=== PATIENT | male | born 1980 | race Caucasian/White ===

== ENCOUNTER 2020-06-21 10:53 | Outpatient (REF) | payer OTHER, SELFPAY ==
[2020-06-21 15:13] LABS: Alanine Aminotransferase 46 U/L (0-40); Albumin Level 4.6 g/dL (3.5-5.0); Alkaline Phosphatase 84 U/L (39-117); Anion Gap 11 (12-20); Aspartate Amino Transferase 34 U/L (5-37); Bilirubin Total 0.6 mg/dL (0.0-1.0); Blood Urea Nitrogen 18 mg/dL (9-16); Calcium 9.3 mg/dL (8.4-10.2); Carbon Dioxide 30 mmol/L (22-29); Chloride 103 mmol/L (96-108); Cholesterol 186 mg/dL; Estimated Glomerular Filt Rate > 60; Glucose Fasting 147 mg/dL (60-99); HDL Cholesterol 41 mg/dL; LDL Cholesterol Calculated 117 mg/dl; Sodium 140 mmol/L (135-145); Total Protein 7.4 g/dL (6.5-8.0); Triglycerides 144 mg/dL
[2020-06-21 15:26] LABS: Estimated Average Glucose 166 mg/dL; Hemoglobin A1c % 7.4 %
[2020-06-21 15:33] LABS: TSH reflex Free T4 1.55 uIU/mL (0.32-4.0)
== END 2020-06-21 10:54 | disposition home or self-care (01) ==
LOC: HO.HMGCLDS 10:53
PROVIDERS: PCP Nurse Practitioner Family; Visit Provider Nurse Practitioner Family
DX: E11.9 Type 2 diabetes mellitus without complications (principal)
CPT/HCPCS: 36415; 80053; 80061; 83036; 84443

== ENCOUNTER 2020-12-21 11:18 | Outpatient (REF) | payer OTHER, SELFPAY ==
[2020-12-21 14:23] LABS: Creatinine Urine 222.63 mg/dL; Microalbum/Creatinine Ratio Ur 9.4 ug/mg cr
[2020-12-21 14:37] LABS: Alanine Aminotransferase 77 U/L (0-40); Albumin Level 4.5 g/dL (3.5-5.0); Alkaline Phosphatase 87 U/L (39-117); Anion Gap 11 (12-20); Aspartate Amino Transferase 52 U/L (5-37); Bilirubin Total 0.9 mg/dL (0.0-1.0); Blood Urea Nitrogen 13 mg/dL (9-16); Calcium 9.3 mg/dL (8.4-10.2); Carbon Dioxide 26 mmol/L (22-29); Chloride 104 mmol/L (96-108); Cholesterol 190 mg/dL; Estimated Glomerular Filt Rate > 60; Glucose Fasting 198 mg/dL (60-99); HDL Cholesterol 37 mg/dL; LDL Cholesterol Calculated 114 mg/dl; Potassium 4.1 mmol/L (3.3-5.1); Sodium 137 mmol/L (135-145); Total Protein 7.3 g/dL (6.5-8.0); Triglycerides 196 mg/dL
[2020-12-21 14:47] LABS: Estimated Average Glucose 209 mg/dL; Hemoglobin A1c % 8.9 %
[2020-12-21 19:04] LABS: TSH reflex Free T4 1.41 uIU/mL (0.32-4.0)
== END 2020-12-21 11:19 | disposition home or self-care (01) ==
LOC: HO.HMGCLDS 11:18
PROVIDERS: PCP Nurse Practitioner Family; Visit Provider Nurse Practitioner Family
DX: Z00.00 Encounter for general adult medical examination without abnormal findings (principal); E11.9 Type 2 diabetes mellitus without complications; R74.8 Abnormal levels of other serum enzymes
CPT/HCPCS: 36415; 80053; 80061; 82043; 83036; 84443

== ENCOUNTER 2021-01-17 10:45 | Outpatient (REF) | payer OTHER, SELFPAY ==
--- NOTE | ~2021-01-17 | US_ITS ---
EXAMINATION: US ABDOMEN COMPLETE CLINICAL INFORMATION: Abnormal levels of other serum enzymes. COMPARISON: Ultrasound abdomen complete 05/25/2015. CT abdomen and pelvis 04/11/2011. TECHNIQUE: Real-time imaging of the abdominal viscera. FINDINGS: PANCREAS: Normal. ABDOMINAL AORTA: The proximal, mid, and distal segments are normal in caliber. INFERIOR VENA CAVA: Visualized portions are normal. LIVER: The liver is normal in size. The liver contour is normal. There is diffuse increased liver parenchymal echogenicity, which can be seen in the setting of hepatic steatosis. No focal hepatic lesion. There is no intrahepatic biliary duct dilatation seen. GALLBLADDER: Cholelithiasis. Additional nonmobile echogenic foci along the gallbladder wall, which may represent polyps measuring up to 0.3 cm. No significant gallbladder wall thickening or pericholecystic free fluid to suggest acute cholecystitis. COMMON BILE DUCT: Normal in caliber measuring 0.4 cm in diameter. RIGHT KIDNEY: Normal. No hydronephrosis. No renal calculi or focal parenchymal lesions. The kidney measures 11.4 cm in maximum dimension. LEFT KIDNEY: Normal. No hydronephrosis. No renal calculi or focal parenchymal lesions. The kidney measures 11.8 cm in maximum dimension. SPLEEN: Normal. The spleen measures 12.8 cm in maximum dimension. FREE FLUID: None. US/US abdomen complete IMPRESSION: 1. Cholelithiasis. Possible gallbladder wall polyps measuring up to 0.3 cm. No gallbladder wall thickening or pericholecystic free fluid to suggest acute cholecystitis. 2. Increased hepatic parenchymal echogenicity, which can be seen in the setting of steatosis. Underlying hepatocellular disease cannot be excluded. No hepatic parenchymal lesion or biliary ductal dilatation.
[2021-01-18 08:30] LABS: HBS Num1 2.78 mIU/mL (0-7.99); HBc Num1 0.16 S/CO (0.00-0.79); HBsAGNum1 0.22 S/CO (0.00-0.99); Hepatitis B Core Antibody Nonreactive (Nonreactive); Hepatitis B Surface Antigen Negative (Negative); ~Hepatitis B Surface Antibody NONREACTIVE (Nonreactive)
[2021-01-18 10:02] LABS: ~HepC Num1 0.38 S/CO (0.00-0.79); ~Hepatitis C Antibody Nonreactive (Nonreactive)
[2021-01-19 07:44] LABS: Hepatitis A Antibody IgM 0.12 Index (0-0.79); ~Hepatitis A Antibody IgM Nonreactive (Nonreactive)
== END 2021-01-17 10:46 | disposition home or self-care (01) ==
LOC: HO.HMGCX 10:45
PROVIDERS: PCP Nurse Practitioner Family; Visit Provider Nurse Practitioner Family
DX: R74.8 Abnormal levels of other serum enzymes (principal)
CPT/HCPCS: 36415; 76700; 86704; 86706; 86709; 86803; 87340

== ENCOUNTER 2021-09-24 12:22 | Outpatient (REF) | payer OTHER, SELFPAY ==
[2021-09-24 13:53] LABS: MANUAL DIFF FLAG NO
[2021-09-24 14:02] LABS: Basophils Percent Auto 0.6 % (0-2); Eosinophils Absolute Auto 0.1 X10*3/uL (0.0-0.4); Hematocrit 43.3 % (42.0-52.0); Hemoglobin 14.6 g/dl (14.0-18.0); Imm Gran Abs Auto 0.02 X10*3/uL (0.00-0.03); Imm Gran Pct Auto 0.3 % (0.0-0.4); Lymphocytes Percent Auto 30.6 % (20-40); Mean Corpuscular HGB Conc 33.7 g/dl (31.0-36.0); Mean Corpuscular Hemoglobin 29.6 pg (27.0-33.0); Mean Corpuscular Volume 87.8 fL (80.0-98.0); Mean Platelet Volume 12.7 fL (9.4-12.4); Monocytes Absolute Auto 0.5 X10*3/uL (0.1-1.2); Monocytes Percent Auto 7.8 % (2-11); Neutrophils Absolute Auto 3.9 x10*3/uL (2.0-8.3); Neutrophils Percent Auto 58.7 % (45-73); Platelet Count 164 X10*3/uL (160-400); Red Blood Count 4.93 X10*6/uL (4.60-5.80); Red Cell Distribution Width 12.3 % (11.0-16.0); White Blood Count 6.6 X10*3/uL (4.8-10.8)
[2021-09-24 14:11] LABS: Estimated Average Glucose 174 mg/dL; Hemoglobin A1c % 7.7 %
[2021-09-24 14:18] LABS: Appearance Urine HAZY; Color Urine YELLOW; Glucose Urine UA NEG (NEG); Leukocyte Esterase Urine NEG (NEG); Nitrite Urine NEG (NEG); Specific Gravity - Urine >= 1.030 (1.005-1.025); Urine Blood NEG (NEG); Urine Ketones NEG (NEG); Urine Protein NEG (NEG-TRACE)
[2021-09-24 14:26] LABS: Alanine Aminotransferase 38 U/L (0-40); Albumin Level 4.4 g/dL (3.5-5.0); Alkaline Phosphatase 109 U/L (39-117); Anion Gap 12 (12-20); Aspartate Amino Transferase 23 U/L (5-37); Bilirubin Total 0.4 mg/dL (0.0-1.0); Blood Urea Nitrogen 16 mg/dL (9-16); Calcium 9.4 mg/dL (8.4-10.2); Carbon Dioxide 25 mmol/L (22-29); Chloride 106 mmol/L (96-108); Cholesterol 216 mg/dL; Estimated Glomerular Filt Rate > 60; Glucose Fasting 179 mg/dL (60-99); HDL Cholesterol 37 mg/dL; LDL Cholesterol Calculated 143 mg/dl; Potassium 4.2 mmol/L (3.3-5.1); Sodium 139 mmol/L (135-145); Total Protein 7.4 g/dL (6.5-8.0); Triglycerides 182 mg/dL
[2021-09-24 14:36] LABS: Creatinine Urine 198.31 mg/dL
== END 2021-09-24 12:23 | disposition home or self-care (01) ==
LOC: HO.HMGCLDS 12:22
PROVIDERS: PCP Nurse Practitioner Family; Visit Provider Nurse Practitioner Family
DX: E11.9 Type 2 diabetes mellitus without complications (principal)
CPT/HCPCS: 36415; 80053; 80061; 81003; 82043; 83036; 84443; 85025

== ENCOUNTER 2022-05-14 13:26 | Outpatient (REF) | payer OTHER, SELFPAY ==
--- NOTE | ~2022-05-14 | XR_ITS ---
EXAMINATION: XR CHEST CLINICAL INFORMATION: Chest pain and breathing. COMPARISON: 02/15/2016 chest radiograph. TECHNIQUE: 2 views of the chest were obtained. FINDINGS: No significant abnormality is noted involving the heart, lungs, mediastinum, bony thorax or soft tissues. XR/XR chest 2V IMPRESSION: No acute cardiopulmonary process.
[2022-05-14 16:39] LABS: MANUAL DIFF FLAG NO
[2022-05-14 16:42] LABS: Basophils Percent Auto 0.5 % (0-2); Eosinophils Absolute Auto 0.1 X10*3/uL (0.0-0.4); Eosinophils Percent Auto 1.2 % (0-4); Hematocrit 44.9 % (42.0-52.0); Hemoglobin 15.2 g/dl (14.0-18.0); Imm Gran Abs Auto 0.03 X10*3/uL (0.00-0.03); Imm Gran Pct Auto 0.3 % (0.0-0.4); Lymphocytes Absolute Auto 1.6 X10*3/uL (1.2-4.9); Lymphocytes Percent Auto 17.9 % (20-40); Mean Corpuscular HGB Conc 33.9 g/dl (31.0-36.0); Mean Corpuscular Hemoglobin 28.9 pg (27.0-33.0); Mean Corpuscular Volume 85.4 fL (80.0-98.0); Mean Platelet Volume 11.7 fL (9.4-12.4); Monocytes Absolute Auto 0.8 X10*3/uL (0.1-1.2); Monocytes Percent Auto 8.9 % (2-11); Neutrophils Absolute Auto 6.3 x10*3/uL (2.0-8.3); Neutrophils Percent Auto 71.2 % (45-73); Platelet Count 179 X10*3/uL (160-400); Red Blood Count 5.26 X10*6/uL (4.60-5.80); Red Cell Distribution Width 12.3 % (11.0-16.0); White Blood Count 8.8 X10*3/uL (4.8-10.8)
[2022-05-14 17:07] LABS: Alanine Aminotransferase 47 U/L (0-40); Albumin Level 4.3 g/dL (3.5-5.0); Alkaline Phosphatase 87 U/L (39-117); Anion Gap 15 (12-20); Aspartate Amino Transferase 29 U/L (5-37); Blood Urea Nitrogen 12 mg/dL (9-16); Calcium 9.6 mg/dL (8.4-10.2); Carbon Dioxide 25 mmol/L (22-29); Chloride 104 mmol/L (96-108); Cholesterol 174 mg/dL; Estimated Glomerular Filt Rate > 60; Glucose Fasting 136 mg/dL (60-99); HDL Cholesterol 37 mg/dL; LDL Cholesterol Calculated 103 mg/dl; Potassium 4.3 mmol/L (3.3-5.1); Sodium 140 mmol/L (135-145); Triglycerides 172 mg/dL
[2022-05-14 17:24] LABS: TSH reflex Free T4 1.05 uIU/mL (0.32-4.0)
[2022-05-14 17:35] LABS: Estimated Average Glucose 189 mg/dL; Hemoglobin A1c % 8.2 %
== END 2022-05-14 13:27 | disposition home or self-care (01) ==
LOC: HO.HMGCLDS 13:26
PROVIDERS: PCP Nurse Practitioner Family; Visit Provider Nurse Practitioner Family
DX: R07.1 Chest pain on breathing (principal); E11.9 Type 2 diabetes mellitus without complications
CPT/HCPCS: 36415; 71046; 80053; 80061; 83036; 84443; 85025

== ENCOUNTER 2024-06-01 10:49 | Outpatient (REF) | payer OTHER, SELFPAY ==
--- OUTSIDE RECORDS SUMMARY | 2024-06-01 14:02 | XMS_ITS | Clinical Summary ---
[facility] Organization [facility] Address [address] [place] [address] Care Team Providers Care Craft Recruiter Name Role Phone Unavailable Primary Care Provider [...]
[2024-06-01 15:04] LABS: Influenza A PCR POSITIVE (Negative); Influenza B PCR NEGATIVE (Negative); Resp Syncy Virus RNA Qual PCR NEGATIVE (Negative); SARS COV2 PCR INHOUSE NEGATIVE (Negative)
== END 2024-06-01 10:50 | disposition home or self-care (01) ==
LOC: HO.LAB 10:49
PROVIDERS: PCP Nurse Practitioner Family; Visit Provider Physician Assistant
DX: J22 Unspecified acute lower respiratory infection (principal); R09.89 Other specified symptoms and signs involving the circulatory and respiratory systems
CPT/HCPCS: 0241U; 99212

== ENCOUNTER 2024-06-01 10:49 | Outpatient (AMB) | payer OTHER, SELFPAY ==
[2024-06-01 11:06] VITALS: BP 132/80; PULSE 81; RESP 20; TEMP 36.8; O2SAT 99; BMI 33.6
--- NOTE | 2024-06-01 11:06 | AM.OFFWIN_ITS ---
Intake Vital Signs 06/01/24 11:06 Height 6 ft 1 in Weight 255 lb BMI 33.6 BP 132/80 Blood Pressure Location Lt brachial Position Sitting Respiration 20 Pulse 81 Pulse Source Pulse Oximeter Temp 98.3 F Temp Source Oral Pulse Oximetry (%) 99 Oxygen Delivery Method Room Air Intake Visit Reasons: EP Cough, bloody phlegm Intake Note: Pt is here today for a walk in visit. Pt c/o cough, a lot of mucus for over a week now. Pt c/o pain in R lung, wheezing and he noticed blood this morning. Patient Tobacco Use Status: Former Tobacco user Allergies No Known Allergies Allergy (Verified 06/01/24 11:07) HPI HPI Comments History of Present Illness Details History - The patient is a 44-year-old male pres enting with acute respiratory symptoms and some blood tinged sputum. - The patient reported a recent illness lasting until two days ago, involving three days of bed-rest due to high fevers and general malaise. - There is noted difficulty in breathing , and during a coughing episode, the patient produced blood mixed with sputum. - The patient denies any prior asthma or COPD, and he is a non-smoker. - He reported negative COVID-19 testing and denied the use of cough-related medications or inhalers prior to this visit. - right sided lung pain accompanies de ep inhalations, and symptoms initially improved briefly but then recurred. Physical Exam General: Cooperative, healthy appearing, comfortable and no acute distress Orientation/consciousness: Patient oriented x3 Limitations: No limitations Head: Normal to inspection Ears: Hearing grossly normal bilaterally, external ears normal and TM's normal bilaterally Nose: Normal external nose present, Normal nares present and No nasal discharge present Face and sinus: Normal facial exam and Yes sinuses nontender Mouth: Normal oral and palatal mucosa present and moist mucous membranes Throat: Yes tonsils normal, Yes uvula midline. Posterior oropharynx erythema Eyes: Appearance normal, both eyes and all related structures Neck: Normal visual inspection Respiratory: Clear to auscultation bilaterally. Normal respiratory effort, able to speak in complete sentences, Actively coughing, no respiratory distress, not tachypneic, no tripod positioning and no use of accessory muscles. Cardiovascular: Regular rate and rhythm. Normal S1 and S2 Skin: No rashes or lesions noted Neuro: Patient oriented x3 Extremities: Normal to inspection and Yes no clubbing, cyanosis or edema [facility] Medical History (Updated 06/01/24 @ 11:31 by Gely Blanco PA-C) Hypertensive retinopathy Diabetes mellitus Drusen of macula of both eyes Balanitis HTN (hypertension) Dyslipidemia Surgical History History of wisdom tooth extraction Family History Father Diabetes mellitus Mother Vision loss Cancer Daughter No problems noted. Social History Housing: House Alcohol intake: current Alcohol intake frequency: a few times a month Patient Tobacco Use Status: Former Tobacco user Tobacco use type: Cigarette Years Smoked: Quit 6 months e-Cigarette/Vaping Use: Never Used Second Hand Smoke Exposure: Yes service: No Current occupational status: unemployed Cognitive needs: No Hearing needs: No Vision needs: No Review of Systems Const All systems reviewed & are unremarkable except as noted in HPI and below Physical Exam Vital Signs: Last Vital Signs Temp 98.3 F 06/01/24 11:06 Pulse 81 06/01/24 11:06 Resp 20 06/01/24 11:06 BP 132/80 06/01/24 11:06 Pulse Ox 99 06/01/24 11:06 Oxygen Delivery Method Room Air 06/01/24 11:06 BMI result Body Mass Index 33.6 Assessment & Plan Assessment & Plan (1) Lower respiratory infection (e.g., bronchitis, pneumonia, pneumonitis, pulmonitis): Code(s): J22 - Unspecified acute lower respiratory infection Plan: VSS, pt well appearing, coughing a lot during exam but lungs were CTA. The patient's acute respiratory symptoms and hemoptysis will be addressed with a prescribed course of prednisone to facilitate airway opening, with administration advised in the morning to prevent insomnia. For nocturnal cough management, Tessalon Perles will be administered before sleep. A chest X-ray is planned to rule out pneumonia as he reports lung pain on right side , and nasal swabs have been taken to test for influenza and COVID-19, with results pending. The introduction of an inhaler will assist with respiratory function, creating a multifaceted approach to managing the symptoms reported. Patient was informed and verbally consented to the use of an ambient scribe for clinic note documentation during this visit Orders: Orders SARS-CoV2/FLU/RSV Today R09.89 - Other specified symptoms and signs involving the circulatory and respiratory systems XR chest 2V Today R05.9 - Cough, unspecified Medications: New benzonatate 200 mg PO .QHS PRN 10 caps 0RF cough albuterol sulfate 90 mcg/actuation 2 puffs inhalation Q6H PRN 8.5 grams 0RF shortness of breath or wheezing or cough prednisone 20 mg PO DAILY 5 tabs 0RF Coding Level of Care Code Est Pt Level 4 (13124) Diagnoses Lower respiratory infection (e.g., bronchitis, pneumonia, pneumonitis, pulmonitis) J22
--- OUTSIDE RECORDS SUMMARY | 2024-06-01 13:02 | XMS_ITS | Clinical Summary ---
Author Organization [facility] ity Address [address] [place] [address] Care Team Providers Care Detonator Maker Name Role Phone Unavailable Primary Care Provider Unavailabl e Social History Tobacco Use Types Packs/Day Years Used Date Smoking Tobacco: Never Assessed Sex and Gender Information Value Date Recorded Sex Assigned at Not on file Legal Sex Male 8:27 AM EST Gender Identity Not on file Sexual Orientation Not on file Plan of Treatment Health Maintenance Due Date Last Done Comments DTaP,Tdap,and Td Vaccines (1 - Tdap) 1998 Hepatitis B Vaccines (1 of 3 - 19+ 3-dose series) 1998 COVID-19 Vaccine (2023-2 5 season) 2023 Influenza Vaccine (#1) 2023 HIB Vaccines Aged Out No longer eligi ble based on patient's age to complete this topic HPV Vaccines Aged Out No longer eligi ble based on patient's age to complete this topic Hepatitis A Vaccines Aged Out No long er eligible based on patient's age to complete this topic IPV Vaccines Aged Out No longer eligi ble based on patient's age to complete this topic MMR Vaccines Aged Out No longer eligi ble based on patient's age to complete this topic Meningococcal ACWY Vaccine Aged Out N o longer eligible based on patient's age to complete this topic Meningococcal B Vacine Aged Out No lo nger eligible based on patient's age to complete this topic Pneumococcal Vaccine: Pediat rics (0 to 5 Years) and At-Risk Patients (6 to 64 Years) Aged Out No longer eligible b ased on patient's age to complete this topic RSV Immunization Patients Un angelo 20 months Aged Out No longer eligible b ased on patient's age to complete this topic Varicella Vaccines Aged Out No longer eligible based on patient's age to complete this topic
== END 2024-06-01 11:32 | disposition home or self-care (01) ==
PROVIDERS: PCP Nurse Practitioner Family; Visit Provider Physician Assistant
DX: J22 Unspecified acute lower respiratory infection (principal)

== ENCOUNTER 2024-06-01 11:31 | Outpatient (REF) | payer OTHER, SELFPAY ==
--- NOTE | ~2024-06-01 | XR_ITS ---
EXAMINATION: XR CHEST 2 VIEWS HISTORY: R05.9 - Cough, unspecified COMPARISON: Comparison is made with the prior examination dated 05/14/2022. FINDINGS: PA and lateral views of the chest are submitted. The lungs are expanded and clear. There is no pleural effusion, pneumothorax, or pulmonary vascular congestion. The heart is normal in size. The bones are intact. XR/XR chest 2V IMPRESSION: No acute cardiopulmonary abnormality. Electronically signed by: Alejandro Cutler MD 06/01/2024 11:50 AM AKIRA
== END 2024-06-01 11:32 | disposition home or self-care (01) ==
LOC: HO.HMGCX 11:31
PROVIDERS: PCP Nurse Practitioner Family; Visit Provider Physician Assistant
DX: R05.9 Cough, unspecified (principal)
CPT/HCPCS: 71046

== ENCOUNTER → 2024-06-01 11:34 | Outpatient (BNV) | payer OTHER, SELFPAY | PROVIDERS: PCP Nurse Practitioner Family; Visit Provider Radiology Diagnostic Radiology | DX: R05.9 Cough, unspecified (principal) | CPT/HCPCS: 71046 ==

== ENCOUNTER 2025-02-10 15:11 | Outpatient (AMB) | payer OTHER, SELFPAY ==
[2025-02-10 15:18] VITALS: BP 124/82; PULSE 82; RESP 18; TEMP 36.8; O2SAT 98; BMI 35.8
--- NOTE | 2025-02-10 15:18 | MHC.PC.OV ---
Vital Signs 02/10/25 15:18 Height 6 ft 1 in Weight 271 lb BMI 35.8 BP 124/82 Blood Pressure Location Lt brachial Position Sitting Respiration 18 Pulse 82 Pulse Source Pulse Oximeter Temp 98.2 F Temp Source Oral Pulse Oximetry (%) 98 Oxygen Delivery Method Room Air Intake Visit Reasons: Annual PE Material Mixer Required: No Accompanied by: Self / Same As Patient Allergies No Known Allergies Allergy (Verified 02/10/25 16:22) Medication List - Last Reconciled 02/10/25 by JANE Smith- alcohol swabs (Alcohol Prep Pads) topical .test TID; blood sugar diagnostic (FreeStyle Lite Strips) tid testing blood-glucose meter (FreeStyle Lite Meter kit) tid testing cyclobenzaprine 10 mg PO BEDTIME PRN 30 days lancets (FreeStyle Lancets) tid testing magnesium oxide 500 mg PO BEDTIME 90 days metformin 500 mg PO BID Tobacco use date assessed: 02/10/25 HPI Annual PE HPI Details History of Present Illness The patient is a 45-year-old male presenting for a physical exam. He reports a concussion in November after falling off a chair and hitting the back of his head. Following the fall, he developed right-sided occipital head pain, neck pain, and photophobia. A CT scan of the head performed at the time was negative, and he reports his symptoms are slowly improving, though he still experiences some shooting pain in the occipital and cervical areas. Since the fall, he has also noticed a small reddish line on the lateral aspect of the sclera in his left eye and feels discomfort, but denies any blurred vision. He also reports cramping in his toes. The patient has a history of diabetes, with a recent HbA1c of 9.7%. He is currently on metformin 500 mg twice daily and has declined any increase in his medication or the addition of further medications. He is due for a colon cancer screening. Health Maintenance The patient is due for a colon cancer screening, and a referral will be placed. He is due for vaccinations, and these were administered. Social History Review of Systems - Cardiovascular: Denies chest pain. - Respiratory: Denies shortness of breath. - Gastrointestinal: Denies abdominal pain, blood in stool, constipation, and diarrhea. - Neurological: Reports right-sided occipital head pain, neck pain, and intermittent shooting pains in the occipital region of the head and cervical neck following a concussion in November. - Musculoskeletal: Reports cramping in his toes. - Eyes: Reports photophobia, eye discomfort, and a reddish line on the lateral aspect of the left sclera. Denies blurred vision. - Psychiatric: Denies suicidal or homicidal ideation. Physical Exam General: Cooperative, healthy appearing, comfortable, no acute distress and well developed Orientation: Patient oriented x3 Limitations: No limitations Head: Normal to inspection, reports occipital head pain due to previous concussion Ears: Hearing grossly normal bilaterally Nose: Normal external nose present Face and sinus: Normal facial exam Eyes: Appearance normal, no hemorrhagic or petechiae noted Neck: Normal visual inspection, reports neck pain, Yes full ROM Respiratory: Normal respiratory effort and able to speak in complete sentences. Clear to auscultation bilaterally Cardiovascular: Regular rate and rhythm. Normal S1 and S2 GI: Normal to inspection. Soft to palpation and nontender : Testicles without masses/lesions and no hernias appreciated Skin: No rashes or lesions noted Neuro: Patient oriented x3, cn 2-12 intact Extremities: Normal to inspection. feet intact bilat, + sensation with use of monofilament Results - Labs: HbA1c is 9.7%. - Imaging: A CAT scan of the head performed in November was negative. Plan 1. Post-Concussion Syndrome The patient has ongoing symptoms of right-sided occipital head pain and neck pain following a concussion. He continues to have shooting pains in his occipital head and cervical neck. A muscle relaxer will be prescribed for use at night. Notes from the hospital visit for the concussion will be requested. Will follow up on these symptoms in 3 to 4 months. pt reports symptoms are slowly getting better 2. Type 2 Diabetes Mellitus Without Complications The patient's diabetes is poorly controlled with an HbA1c of 9.7%. He is currently on metformin 500 mg twice a day and declined an increase in his metformin dose or the addition of other medications. Will re-evaluate in 3 to 4 months. 3. Muscle Cramp The patient reports cramping in his toes. Will prescribe magnesium oxide to be taken at night. 4. Eye Discomfort The patient reports discomfort and a reddish line on the lateral sclera of his left eye, which started after his fall. Examination did not reveal any hemorrhage or petechiae. The patient will be referred to ophthalmology for further evaluation. Discussion Notes I discussed the patient's ongoing post-concussive symptoms, including head and neck pain, and prescribed a muscle relaxer for nighttime use. We reviewed his poorly controlled diabetes, as indicated by his HbA1c of 9.7%, but he declined any changes to his medication regimen at this time. I advised him to take magnesium oxide for his toe cramps and to follow up with an funeral arrangement director for the discomfort and redness in his left eye. A referral for a colon screening will be placed. He received the vaccinations he was due for. I will see him back in 3 to 4 months for follow-up on his diabetes and concussion symptoms. Patient Instructions - Take the prescribed muscle relaxer at night to help with your head and neck pain. - Take magnesium oxide at night as directed for the cramping in your toes. - Please make an appointment to see an eye doctor (funeral arrangement director) for the discomfort and red line you've noticed in your left eye. - Your A1c level for diabetes is high at 9.7%. It is important to manage your blood sugar. For now, continue taking metformin 500 mg twice a day as you have been. - We are placing a referral for you to get a colon cancer screening. Please schedule this procedure. - You have received the vaccinations you were due for today. - Please schedule a follow-up appointment in 3 to 4 months to check on your diabetes and concussion symptoms. [facility] Medical History Hypertensive retinopathy Diabetes mellitus Drusen of macula of both eyes Balanitis HTN (hypertension) Dyslipidemia Surgical History History of wisdom tooth extraction Family History Father Diabetes mellitus Mother Vision loss Cancer Daughter No problems noted. Social History Housing: House Alcohol intake: current Alcohol intake frequency: a few times a month Patient Tobacco Use Status: Former Tobacco user Tobacco use type: Cigarette Years Smoked: Quit 6 months e-Cigarette/Vaping Use: Never Used Second Hand Smoke Exposure: Yes service: No Current occupational status: unemployed Cognitive needs: No Hearing needs: No Vision needs: No Questionnaire PHQ-9 Over the last 2 weeks, how often have you been bothered by any of the following problems? 1. Little interest or pleasure in doing things: not at all 2. Feeling down, depressed, or hopeless: not at all 3. Trouble falling or staying asleep, or sleeping too much: not at all 4. Feeling tired or having little energy: not at all 5. Poor appetite or overeating: not at all 6. Feeling bad about yourself - or that you are a failure or have let yourself or your family down: not at all 7. Trouble concentrating on things, such as reading the newspaper or watching television: not at all 8. Moving or speaking so slowly that other people could have noticed. Or the opposite - being so fidgety or restless that you have been moving around a lot more than usual: not at all 9. Thoughts that you would be better off or of hurting yourself in some way: not at all Total score: 0 Depression Screening Interpretation: Negative Depression Screening Done: Yes 19018 - PHQ-9 Billing: Patient declined-do not bill Source: Developed by Drs. Alejandro Beckham, Constance Salazar, Willy Wagner and colleagues, with an educational kamron from [employer]. Thrive Questionnaire Date Thrive assessed: 02/03/25 I am a: Patient What is your living situation today?: I have a steady place to live Within the past 12 months, did the food you bought not last and you didn't have the money to get more?: I choose not to answer this question Within the past 12 months, did you worry whether your food would run out before you got money to buy more?: I choose not to answer this question Do you have trouble paying for medicines?: Yes Do you have trouble getting transportation to medical appointments?: No Do you have trouble paying your heating and electricity bill?: I choose not to answer this question Do you have trouble taking care of your child, family member or friend?: No Do you have trouble with day-to-day activities such as bathing, preparing meals, shopping, managing finances, etc.?: No Are you currently unemployed and looking for a job?: Yes Are you interested in more education?: No Please select the resources that you would like help with: Paying for medicine Currently or been in a relationship where the following occur: I choose not to answer THRIVE Score: 0 AUDIT C Alcohol Use Questionnaire (AUDIT-C) 1. How often do you have a drink containing alcohol?: 4 or more times a week 2. How many drinks containing alcohol do you have on a typical day when you are drinking?: 10 or more 3. How often do you have six or more drinks on one occasion?: Daily or almost daily Total Score: 12 GASPER-7 AMB Questionnaire GASPER-7 Date GASPER - 7 assessed: 02/10/25 Feeling nervous, anxious, or on edge: 0 = Not at all Not being able to stop or control worryin = Not at all Worrying too much about different things: 0 = Not at all Trouble relaxin = Not at all Being so restless that it is hard to sit still: 0 = Not at all Becoming easily annoyed or irritable: 0 = Not at all Feeling afraid as if something awful might happen: 0 = Not at all Total GASPER-7 score (0-4 normal; 5-9 mild; 10-14 moderate; 15-21 severe): 0 Source: Developed by Drs. Alejandro Beckham, Constance Salazar, Willy Wagner and colleagues, with an educational kamron from [employer]. Physical exam (Primary Care) Vital Signs: Last Vital Signs Temp 98.2 F 02/10/25 15:18 Pulse 82 02/10/25 15:18 Resp 18 02/10/25 15:18 BP 124/82 02/10/25 15:18 Pulse Ox 98 02/10/25 15:18 Oxygen Delivery Method Room Air 02/10/25 15:18 BMI result Body Mass Index 35.8 Tobacco/Smoking Status: Tobacco use Status Tobacco use date assessed 02/10/25 02/10/25 15:26 Patient Tobacco Use Status Former Tobacco user 02/10/25 15:26 Tobacco use type Cigarette 02/10/25 15:26 e-Cigarette/Vaping Use Never Used 02/10/25 15:26 PHQ-9: PHQ-9 Score PHQ-9: Total score 0 02/10/25 15:51 Depression Screening Interpretation: Negative Thrive Assessment: Date of Thrive Assessment Date Thrive assessed 02/03/25 02/10/25 15:26 Currently or been in a relationship where the following occur: I choose not to answer Results AMB Hemoglobin A1c AMB Hemoglobin A1c 9.7 % Last Edit by Linsey Carbajal MA on 02/10/25 15:51 Results Reviewed Results Reviewed: Laboratory Last Values Hgb A1c (Clinic) 9.7 % (4.0-6.0) H 02/10/25 15:26 Coding Level of Care Code Est Pt Level 3 (32361) Est Pt Prev Care 40-64y(19001) Diagnoses Diabetes mellitus E11.9 Blood typing encounter Z01. Screening for colon cancer Z12.11 Concussion S06.0XAA Encounter for routine adult physical exam with abnormal findings Z00. Screening for prostate cancer Z12.5 Assessment & Plan Assessment & Plan (1) Diabetes mellitus: Code(s): E11.9 - Type 2 diabetes mellitus without complications Category: Medical (2) Blood typing encounter: Code(s): Z01.83 - Encounter for blood typing Category: Medical (3) Screening for colon cancer: Code(s): Z12.11 - Encounter for screening for malignant neoplasm of colon Category: Medical (4) Concussion: Code(s): S06.0XAA - Concussion with loss of consciousness status unknown, initial encounter Category: Medical (5) Encounter for routine adult physical exam with abnormal findings: Code(s): Z00.01 - Encounter for general adult medical examination with abnormal findings Category: Medical (6) Screening for prostate cancer: Code(s): Z12.5 - Encounter for screening for malignant neoplasm of prostate Category: Medical Plan . Orders: Orders AMB Hemoglobin A1c Today E11.9 - Type 2 diabetes mellitus without complications Complete Blood Count Auto Diff Today E11.9 - Type 2 diabetes mellitus without complications Comprehensive [place]. Panel Fast Today E11.9 - Type 2 diabetes mellitus without complications UA CC w/rflx Micro + Cult Today E11.9 - Type 2 diabetes mellitus without complications Microalbumin, Random (w Creat) Today E11.9 - Type 2 diabetes mellitus without complications TSH reflex Free T4 Today E11.9 - Type 2 diabetes mellitus without complications Lipid Panel Today E11.9 - Type 2 diabetes mellitus without complications ABO RH Type Today Z01.83 - Encounter for blood typing Prostate Specific Antigen Scr Today Z12.5 - Encounter for screening for malignant neoplasm of prostate Referrals Gastroenterology Referral Z12.11 - Encounter for screening for malignant neoplasm of colon Medications: New cyclobenzaprine 10 mg PO BEDTIME PRN 30 tabs 0RF muscle spasm 30 days magnesium oxide 500 mg PO BEDTIME 90 caps 0RF 90 days
--- OUTSIDE RECORDS SUMMARY | 2025-02-10 18:13 | XMS_ITS | Clinical Summary ---
Author Organization [facility] Address [address] [place] [address] Phone Care Team Providers Care Rv Technician Name Role Phone El Booker NP Primary Care Provider [phone] Allergies No known active allergies Medications tobramycin (TOBREX) 0.3 % ophthalmic solution Instill 1 drop into the affected eye(s) every 6 hrs daily for 7 days. 5 mL 01/18/20 25 Encounters Date Type Department Care Team Description 01/03/2025 12:09 AM EDT - 01/03/2025 7:04 AM EDT Emergency [facility] Emergency [address] [place] [address] Julius Miller MD Nonintractable episodic headache, unspecified headache type (Primary Dx); Migraine without status migrainosus, not intractable, unspecified migraine type; Acute conjunctivitis of left eye, unspecified acute conjunctivitis type Discharge Disposition: Home or Self Care from Last 3 Months Medical History Medical History Date Comments Diabetes mellitus ([facility] V24, [facility] V28) Social History Tobacco Use Types Packs/Day Years Used Date Smoking Tobacco: Former Cigarettes Smokeless Tobacco: Never Tobacco Cessation:Counseling Given: Not Answered Sex and Gender Information Value Date Recorded Sex Assigned at Not on file Legal Sex Male 8:27 AM EST Gender Identity Not on file Sexual Orientation Not on file Obstetrics History Last Filed Vital Signs Vital Sign Reading Time Taken Comments Blood Pressure 140/95 01/03/2025 6:22 AM EDT Pulse 68 01/03/2025 6:22 AM EDT Temperature 36.4 C (97.5 F) 01/03/2025 6:22 AM EDT Respiratory Rate 17 01/03/2025 6:22 AM EDT Oxygen Saturation 98% 01/03/2025 6:22 AM EDT Inhaled Oxygen Concentration - - Weight 120 kg (265 lb) 01/03/2025 12:08 AM EDT Height 185.4 cm (6' 1 ) 01/03/2025 12:08 AM EDT Body Mass Index 34.96 01/03/2025 12:08 AM EDT Plan of Treatment Health Maintenance Due Date Last Done Comments Colorectal Cancer Screening: Colonoscopy 1979 DTaP,Tdap,and Td Vaccines (1 - Tdap) 1998 Hepatitis B Vaccines (1 of 3 - 19+ 3-dose series) 1998 Depression Screening 04/07/2024 COVID-19 Vaccine ( - 2023-2 5 season) 2024 Influenza Vaccine (#1) 2024 Cholesterol Screening (Lipid Panel) 01/03/2025 HIV Screening 01/03/2025 Hepatitis C Screening 01/03/2025 Social Influencers of Health Screening 01/03/2025 RSV Immunization Adult Patie nts (1 - 1-dose 75+ series) 2054 HIB Vaccines Aged Out No longer eligi [...] age to complete this topic Meningococcal B Vaccine Aged Out No l onger eligible based on patient's age to complete this topic Pneumococcal Vaccine: Pediat rics (0 to 5 Years) and At-Risk Patients (6 to 49 Years) Aged Out No longer eligible b ased on patient's age to complete this topic RSV Immunization Patients Un angelo 20 months Aged Out No longer eligible b ased on patient's age to complete this topic Varicella Vaccines Aged Out No longer eligible based on patient's age to complete this topic Procedures Procedure Name Priority Date/Time Associated Diagnosis Comments CBC WITH AUTO DIFFERENTIAL STAT 01/03/2025 3:39 AM EDT SEDIMENTATION RATE STAT 01/03/2025 3: 39 AM EDT COMPREHENSIVE METABOLIC PANEL STAT 01/03/2025 3:39 AM EDT CBC AND DIFFERENTIAL STAT 01/03/2025 3:[address] HEAD WO CONTRAST STAT 01/03/2025 3 :29 AM EDT from Last 3 Months Results * (ABNORMAL) CBC auto differential (01/03/2025 3:39 AM EDT) [facility] WBC 7.9 4.8 - 10.8 K/mcL LAB HEMETOLOGY METHOD 01/03/2025 5:26 AM [facility] RBC 5.10 4.50 - 5.50 M/mcL LAB HEMETOLOGY METHOD 01/03/2025 5:26 AM [facility] Hemoglobin 14.7 13.5 - 17.5 g/dL LAB HEMETOLOGY METHOD 01/03/2025 5:26 AM [facility] Hematocrit 44.2 42.0 - 54.0 % LAB HEMETOLOGY METHOD 01/03/2025 5:26 AM [facility] MCV 86.7 79.0 - 98.0 FL LAB HEMETOLOGY METHOD 01/03/2025 5:26 AM [facility] MCH 28.8 27.0 - 32.0 pcg LAB HEMETOLOGY METHOD 01/03/2025 5:26 AM [facility] MCHC 33.3 32.0 - 37.0 g/dL LAB HEMETOLOGY METHOD 01/03/2025 5:26 AM [facility] RDW 12.6 11.0 - 15.0 % LAB HEMETOLOGY METHOD 01/03/2025 5:26 AM [facility] Platelets 169 130 - 400 K/mcL LAB HEMETOLOGY METHOD 01/03/2025 5:26 AM [facility] MPV 12.7(H) 7.0 - 11.0 FL LAB HEMETOLOGY METHOD 01/03/2025 5:26 AM [facility] NRBC 0.0 <1.0 % LAB HEMETOLOGY METHOD 01/03/2025 5:26 AM [facility] NRBC Absolute 0.00 <0.10 K/[facility] LAB HEMETOLOGY METHOD 01/03/2025 5:26 AM [facility] Neutrophils Relative 53.4 % LAB HEMETOLOGY METHOD 01/03/2025 5:26 AM [facility] Lymphocytes Relative 34.4 % LAB HEMETOLOGY METHOD 01/03/2025 5:26 AM [facility] Monocytes Relative 9.0 % LAB HEMETOLOGY METHOD 01/03/2025 5:26 AM [facility] Eosinophils Relative 2.2 % LAB HEMETOLOGY METHOD 01/03/2025 5:26 AM [facility] Basophils Relative 0.6 % LAB HEMETOLOGY METHOD 01/03/2025 5:26 AM [facility] Immature Granulocytes Relative 0.4 % LAB HEMETOLOGY METHOD 01/03/2025 5:26 AM [facility] Neutrophils Absolute 4.20 1.50 - 7.00 K/[facility] LAB HEMETOLOGY METHOD 01/03/2025 5:26 AM [facility] Lymphocytes Absolute 2.71 1.00 - 5.00 K/mcL LAB HEMETOLOGY METHOD 01/03/2025 5:26 AM [facility] Monocytes Absolute 0.71 0.20 - 1.00 K/mcL LAB HEMETOLOGY METHOD 01/03/2025 5:26 AM [facility] Eosinophils Absolute 0.17 0.00 - 0.50 K/mcL LAB HEMETOLOGY METHOD 01/03/2025 5:26 AM EDT [facility] Basophils Absolute 0.05 0.00 - 0.20 K/[facility] LAB HEMETOLOGY METHOD 01/03/2025 5:26 AM EDT [facility] Immature Granulocytes Absolute 0.03 0.00 - 0.03 K/[facility] LAB HEMETOLOGY METHOD 01/03/2025 5:26 AM EDT [facility] Blood Venous blood specimen / Unknown Venipuncture / Unknown 01/03/2025 3:39 AM EDT 01/03/2025 5:21 AM EDT Julius Miller MD LAB BLOOD ORDERABLES Solange l Result Performing Organization Address City/[facility]/ZIP Co de Phone Number [facility] [address] [place] [address], [place] [phone] * Sedimentation rate (01/03/2025 3:39 AM EDT) Sed Rate 12 0 - 15 mm/hr LAB HEMETOLOGY METHOD 01/03/2025 5:34 AM EDT [facility] Blood Venous blood specimen / Unknown Venipuncture / Unknown 01/03/2025 3:39 AM EDT 01/03/2025 5:21 AM EDT Julius Miller MD LAB BLOOD ORDERABLES Solange l Result [facility] [address] [place] [address], [place] [phone] * (ABNORMAL) Comprehensive Metabolic Panel (CMP) (01/03/2025 3:39 AM EDT) Sodium 137 133 - 145 mmol/L LAB CHEMISTRY METHOD 01/03/2025 5:47 AM EDT [facility] Potassium 3.9 3.5 - 5.5 mmol/L LAB CHEMISTRY METHOD 01/03/2025 5:47 AM [facility] Chloride 102 96 - 110 mmol/L LAB CHEMISTRY METHOD 01/03/2025 5:47 AM [facility] CO2 27 21 - 32 mmol/L LAB CHEMISTRY METHOD 01/03/2025 5:47 AM [facility] Anion Gap 8 3 - 11 LAB CHEMISTRY METHOD 01/03/2025 5:47 AM [facility] Glucose 137(H) 70 - 100 mg/dL LAB CHEMISTRY METHOD 01/03/2025 5:47 AM [facility] BUN 15 5 - 25 mg/dL LAB CHEMISTRY METHOD 01/03/2025 5:47 AM [facility] Creatinine 0.89 0.70 - 1.30 mg/dL LAB CHEMISTRY METHOD 01/03/2025 5:47 AM [facility] eGFR 108 >=60 mL/min/1. 73m2 LAB CHEMISTRY METHOD 01/03/2025 5:47 AM [facility] Comment:Calculation based on the Chronic Kidney Disease Epidemiology Collaboration (CKD-EPI) equation refit without adjustment for race. BUN/Creatinine Ratio 16.9 LAB CHEMISTRY METHOD 01/03/2025 5:47 AM [facility] Calcium 9.3 8.5 - 10.5 mg/dL LAB CHEMISTRY METHOD 01/03/2025 5:47 AM [facility] AST (SGOT) 27 10 - 42 unit/L LAB CHEMISTRY METHOD 01/03/2025 5:47 AM [facility] ALT (SGPT) 46 10 - 60 unit/L LAB CHEMISTRY METHOD 01/03/2025 5:47 AM [facility] Alkaline Phosphatase 111 42 - 121 unit/L LAB CHEMISTRY METHOD 01/03/2025 5:47 AM [facility] Total Protein 7.4 6.0 - 8.0 g/dL LAB CHEMISTRY METHOD 01/03/2025 5:47 AM EDT [facility] Albumin 4.2 3.2 - 5.0 g/dL LAB CHEMISTRY METHOD 01/03/2025 5:47 AM EDT [facility] Total Bilirubin 0.3 0.0 - 1.4 mg/dL LAB CHEMISTRY METHOD 01/03/2025 5:47 AM EDT [facility] Blood Venous blood specimen / Unknown Venipuncture / Unknown 01/03/2025 3:39 AM EDT 01/03/2025 5:21 AM EDT Julius Milelr MD LAB BLOOD ORDERABLES Solange l Result [facility] [address] [place] [address], * CT Head wo Contrast (01/03/2025 3:29 AM EDT) Anatomical Region Laterality Modality Head and Neck Computed Tomogra phy 01/03/2025 3:53 AM EDT Impressions 01/03/2025 3:53 AM EDT 1. No acute intracranial findings. This document has been electronically signed by: Devonte Peralta MD on 01/03/2025 03:53:32 Narrative 01/03/2025 3:53 AM EDT INDICATION: Headache, intracranial hemorrhage suspected CT head without contrast Comparison: None provided Findings: No intra-axial mass, midline shift, hydrocephalus, or acute hemorrhage. No significant atrophy-like change or white matter disease. There is no sinus or mastoid fluid. The orbits are unremarkable. No skull fracture. Procedure Note Devonte Peralta - 01/03/2025 INDICATION: Headache, intracranial hemorrhage suspected CT head without contrast Comparison: None provided Findings: No intra-axial mass, midline shift, hydrocephalus, or acute hemorrhage. No significant atrophy-like change or white matter disease. There is no sinus or mastoid fluid. The orbits are unremarkable. No skull fracture. IMPRESSION: 1. No acute intracranial findings. This document has been electronically signed by: Devonte Peralta MD on 01/03/2025 03:53:32 [facility] PROCEDURES Final R esult from Last 3 Months Insurance [facility] [address] Care Teams Rv Technician Relationship Specialty Start Date End Date El Booker NP [address], [place] PCP - General Family Medicine 01/03/25
== END 2025-02-10 16:32 | disposition home or self-care (01) ==
LOC: HO.HMCC 15:12
PROVIDERS: PCP Nurse Practitioner Family; Visit Provider Nurse Practitioner Family
DX: Z00.01 Encounter for general adult medical examination with abnormal findings (principal); E11.9 Type 2 diabetes mellitus without complications; Z01.83 Encounter for blood typing; Z12.11 Encounter for screening for malignant neoplasm of colon; S06.0XAA Concussion with loss of consciousness status unknown, initial encounter; Z12.5 Encounter for screening for malignant neoplasm of prostate

== ENCOUNTER → 2025-02-10 15:11 | Outpatient (BNVA) | payer OTHER, SELFPAY | PROVIDERS: PCP Nurse Practitioner Family; Visit Provider Nurse Practitioner Family | DX: Z00.01 Encounter for general adult medical examination with abnormal findings (principal); E11.9 Type 2 diabetes mellitus without complications; F07.81 Postconcussional syndrome; R25.2 Cramp and spasm; H57.12 Ocular pain, left eye; M54.2 Cervicalgia; Z79.84 Long term (current) use of oral hypoglycemic drugs; Z91.81 History of falling; Z01.83 Encounter for blood typing | CPT/HCPCS: 83036; 99212; 99396 ==

== ENCOUNTER 2025-03-27 17:14 | Emergency (ER) | payer OTHER, SELFPAY ==
[2025-03-27 17:22] VITALS: BP 126/74; PULSE 96; RESP 18; TEMP 36.6; O2SAT 98; BMI 35.6
--- NOTE | 2025-03-27 17:24 | ED_ITS ---
HPI - Skin/Abscess/Foreign Bdy General Chief complaint: Wound/Laceration Stated complaint: abscess on thigh Time Seen by Provider: 03/27/25 17:37 Source: patient Mode of arrival: ambulatory Limitations: no limitations History of Present Illness ED Provider: Mary Holguin APRN HPI narrative: L 45-year-old male with a history of diabetes presents to the ER with complaints of redness and swelling with abscess to the right groin for the last 5 days. Patient reports that it started draining spontaneously today. He denies any fevers or chills. Related Data Previous Rx's ?Medication ?Instructions ?Recorded alcohol swabs (Alcohol Prep Pads) See Rx Instructions topical .test 04/10/21 TID #200 ea blood-glucose meter (FreeStyle #1 ea 04/10/21 Lite Meter kit) lancets 28 gauge (FreeStyle #100 ea 04/10/21 Lancets) blood sugar diagnostic (FreeStyle #100 ea 12/11/21 Lite Strips) metformin 500 mg tablet 500 mg PO BID #180 tabs 05/30 magnesium oxide 500 mg capsule 500 mg PO BEDTIME 90 da ys #90 caps 02/10/25 cyclobenzaprine 10 mg tablet 10 mg PO BEDTIME PRN musc le spasm 03/09/25 30 days #30 tabs doxycycline monohydrate 100 mg 100 mg PO BID #20 caps 03/27/25 capsule Allergies Allergy/AdvReac Type Severity Reaction Status Date / Time apple Allergy Unknown Verified 03/27/25 17:24 Review of Systems 2 Review of Systems: Yes all other systems are reviewed and are negative Constitutional: Constitutional: Reports no additional constitutional complaints, Denies body ache(s), Denies chills, Denies fever(s), Denies headache(s) and Denies weakness Eyes: Eyes: Reports no additional eye complaints and Denies change in vision ENT: Reports system reviewed and no additional complaints, except as documented, Denies dizziness, Denies headache(s), Denies nasal congestion, Denies nasal discharge and Denies neck pain Cardiovascular: Cardiovascular: Reports no additional cardiovascular complaints, Denies chest pain, Denies leg edema and Denies dyspnea Respiratory: Respiratory: Reports no additional respiratory complaints, Denies cough and Denies dyspnea Gastrointestinal: Gastrointestinal: Reports no additional gastrointestinal complaints, Denies abdominal pain, Denies diarrhea, Denies nausea and Denies vomiting Genitourinary: Genitourinary: Denies urinary incontinence Musculoskeletal: Musculoskeletal: Reports no additional musculoskeletal complaints, Denies back pain, Denies arthralgias, Denies joint swelling, Denies neck pain, Denies numbness and Denies tingling Integumentary/Breasts: Skin/Breast: Reports system reviewed and no additional complaints, except as docu, Reports swelling, Reports erythema and Denies rash Neurologic: Reports system reviewed and no additional complaints, except as documented, Denies Abnormal speech present, Denies dizziness, Denies headache(s), Denies numbness, Denies tingling and Denies weakness PMF Past Medical History Attestation statement: The following information was validated with the patient. Source: old records reviewed and nursing notes reviewed Medical History Hypertensive retinopathy Diabetes mellitus Drusen of macula of both eyes Balanitis HTN (hypertension) Dyslipidemia Surgical History History of wisdom tooth extraction Family History Family History Father Diabetes mellitus Mother Vision loss Cancer Daughter No problems noted. Social History Social History Housing: House Alcohol intake: current Alcohol intake frequency: a few times a month Patient Tobacco Use Status: Former Tobacco user Tobacco use type: Cigarette Years Smoked: Quit 6 months e-Cigarette/Vaping Use: Never Used Second Hand Smoke Exposure: Yes Do you have a plan to hurt others: No Plan service: No Current occupational status: unemployed Cognitive needs: No Hearing needs: No Vision needs: No Physical Exam 2 Vital Signs: Vital Signs: Last Vital Signs Temp 98 F 03/27/25 17:22 Pulse 96 03/27/25 17:22 Resp 18 03/27/25 17:22 BP 126/74 03/27/25 17:22 Pulse Ox 98 03/27/25 17:22 O2 Del Method Room Air 03/27/25 17:22 BMI result Body Mass Index 35.6 Const: General: cooperative, healthy appearing, comfortable and no acute distress Orientation/consciousness: patient oriented x3 Limitations: no limitations HEENT: Head: Yes normal to inspection Ears: hearing grossly normal bilaterally General nose exam: Normal external nose present Face and sinus: Yes normal facial exam Mouth: Normal oral and palatal mucosa present Throat: Yes posterior oropharynx normal Eyes: General: appearance normal, both eyes and all related structures P upils: Equal, round and reactive pupils present Neck: Neck: Yes normal visual inspection Chest: Chest palpation & inspection: normal inspection of the chest Resp: Effort & Inspection: normal respiratory effort Auscultation: clear to auscultation bilaterally Cardio: Rate: regular rate Rhythm: regular rhythm Peripheral pulses: P eripheral pulses 2+ throughout GI: Inspection: Yes normal to inspection Palpation (GI): Soft to palpation and nontender Auscultation: normal bowel sounds Abdomen image: 1. abscess present which is draining. There is some mild surrounding erythema and swelling. There is no extension into the right testicle or into the perineum Back/Spine/Pelvis: Thoracic/Lumbar Spine: thoracic and lumbar spine normal to inspection Skin: General skin exam: no rashes or lesions noted Neuro: General: patient oriented x3, no focal motor deficits and normal sensation to monofilament Cranial nerves: Yes Equal, round and reactive pupils present Cognition (Neuro): normal cognition Speech: No Abnormal speech present Gait exam (Neuro): Normal gait present Motor exam (neuro): 5/5 motor strength present throughout Extrem: General: Yes normal to inspection Course Course Course Narrative: This is a Rapid Medical Examination (RME) performed by Edwige Castillo NP in triage. Full assessment, plan deferred to customer technical services manager. 45-year-old male medical history significant for fatty liver, elevated liver enzymes presents to the ED for evaluation of an abscess to the right groin. Patient reports it was there for about 3-4 days, but yesterday at seemed to have grown, and then popped. He now has discomfort in the area. No fever, chills. Plan: Assessment by primary provider when in ED room, likely PO abx. Medical Decision Making Medical Decision Making [facility] Narrative: L 45-year-old male with a history of diabetes presents to the ER with complaints of redness and swelling with abscess to the right groin for the last 5 days. Patient reports that it started draining spontaneously today. He denies any fevers or chills. On exam there is a draining right inguinal abscess. There is no associated lymphadenopathy. There is no extension into the testicle or into the perineum. This area is localized and contained. Patient is nontoxic, afebrile. I recommend he continue warm compresses and I will put him on oral antibiotic with strict return precautions. Reviewed worrisome signs and symptoms of when to return to the emergency room. Comfortable plan for discharge home. Differential Diagnosis Differential Diagnoses: The differential diagnosis associated with the presentation includes Abscess, cellulitis, Mayra's gangrene Admission/Observation Consideration of admission/observation: Escalation of care including admission/observation considered Prescription Management I considered prescription management with: Antibiotic Discharge Plan Discharge Clinical Impression: Abscess Patient Disposition: Home, Self-Care Instructions: Abscess (ED) Additional Instructions: warm compresses to the area Take the antibiotics as prescribed Alternate Motrin and Tylenol if able as needed for any pain Return for increasing swelling, increasing redness or fever greater than 100.4 Prescriptions: New doxycycline monohydrate 100 mg capsule 100 mg PO BID Qty: 20 0RF No Action alcohol swabs [Alcohol Prep Pads] Pads, Medicated See Rx Instructions topical .test TID Qty: 200 0RF Rx Instructions: topical .test TID; (DME) blood-glucose meter [FreeStyle Lite Meter] Kit See Rx Instructions .Route Qty: 1 0RF Rx Instructions: tid testing (DME) lancets [FreeStyle Lancets] 28 gauge misc See Rx Instructions .Route Qty: 100 1RF Rx Instructions: tid testing (DME) FreeStyle Lite Strips Strip See Rx Instructions .Route Qty: 100 0RF Rx Instructions: tid testing metformin 500 mg tablet 500 mg PO BID Qty: 180 1RF cyclobenzaprine 10 mg tablet 10 mg PO BEDTIME PRN (Reason: muscle spasm) 30 Days Qty: 30 0RF magnesium oxide 500 mg capsule 500 mg PO BEDTIME 90 Days Qty: 90 0RF Referrals: El Booker, [facility] [Primary Care Provider, Internal Medicine] Print Language: Niuean
--- OUTSIDE RECORDS SUMMARY | 2025-03-27 17:54 | XMS_ITS | Clinical Summary ---
Author Organization [facility] Address [address] [place] [address] Phone Care Team Providers Care Sliver Handler Name Role Phone El Booker NP Primary Care Provider Allergies No known active allergies Encounters Date Type Department Care Team Description 01/03/2025 12:09 AM EDT - 01/03/2025 7:04 AM EDT Emergency [facility] [address] [place] [address] Julius Miller MD Nonintractable episodic headache, unspecified headache type (Primary Dx); Migraine without status migrainosus, not intractable, unspecified migraine type; Acute conjunctivitis of left eye, unspecified acute conjunctivitis type Discharge Disposition: Home or Self Care from Last 3 Months Medical History Medical History Date Comments Diabetes mellitus ([facility] V24, [facility] V28) Social History Tobacco Use Types Packs/Day Years Used Date Smoking Tobacco: Former Cigarettes Smokeless Tobacco: Never Tobacco Cessation:Counseling Given: Not Answered Sex and Gender Information Value Date Recorded Sex Assigned at Not on file Legal Sex Male 8:27 AM EST Gender Identity Not on file Sexual Orientation Not on file Last Filed Vital Signs Vital Sign Reading [...] series) 1998 Depression Screening 04/07/2024 COVID-19 Vaccine (1 - 2024-2 6 season) 2024 Influenza Vaccine (#1) 2024 Cholesterol [...] CBC auto differential (01/03/2025 3:39 AM EDT) [facility] WBC 7.9 4.8 - 10.8 K/mcL LAB HEMETOLOGY METHOD 01/03/2025 5:26 AM [facility] RBC 5.10 4.50 - 5.50 M/mcL LAB HEMETOLOGY METHOD 01/03/2025 5:26 AM [facility] Hemoglobin 14.7 13.5 - 17.5 g/dL LAB HEMETOLOGY METHOD 01/03/2025 5:26 AM [facility] Hematocrit 44.2 42.0 - 54.0 % LAB HEMETOLOGY METHOD 01/03/2025 5:26 AM [facility] MCV 86.7 79.0 - 98.0 FL LAB HEMETOLOGY METHOD 01/03/2025 5:26 AM [facility] MCH 28.8 27.0 - 32.0 pcg LAB HEMETOLOGY METHOD 01/03/2025 5:26 AM [facility] MCHC 33.3 32.0 - 37.0 g/dL LAB HEMETOLOGY METHOD 01/03/2025 5:26 AM [facility] RDW 12.6 11.0 - 15.0 % LAB HEMETOLOGY METHOD 01/03/2025 5:26 AM [facility] Platelets 169 130 - 400 K/mcL LAB HEMETOLOGY METHOD 01/03/2025 5:26 AM [facility] MPV 12.7(H) 7.0 - 11.0 FL LAB HEMETOLOGY METHOD 01/03/2025 5:26 AM [facility] NRBC 0.0 <1.0 % LAB HEMETOLOGY METHOD 01/03/2025 5:26 AM EDT [facility] NRBC Absolute 0.00 <0.10 K/mcL LAB HEMETOLOGY METHOD 01/03/2025 5:26 AM [facility] Neutrophils Relative 53.4 % LAB HEMETOLOGY METHOD 01/03/2025 5:26 AM [facility] Lymphocytes Relative 34.4 % LAB HEMETOLOGY METHOD 01/03/2025 5:26 AM [facility] Monocytes Relative 9.0 % LAB HEMETOLOGY METHOD 01/03/2025 5:26 AM [facility] Eosinophils Relative 2.2 % LAB HEMETOLOGY METHOD 01/03/2025 5:26 AM [facility] Basophils Relative 0.6 % LAB HEMETOLOGY METHOD 01/03/2025 5:26 AM [facility] Immature Granulocytes Relative 0.4 % LAB HEMETOLOGY METHOD 01/03/2025 5:26 AM [facility] Neutrophils Absolute 4.20 1.50 - 7.00 K/mcL LAB HEMETOLOGY METHOD 01/03/2025 5:26 AM [facility] Lymphocytes Absolute 2.71 1.00 - 5.00 K/mcL LAB [facility] Monocytes Absolute 0.71 0.20 - 1.00 K/mcL LAB HEMETOLOGY METHOD 01/03/2025 5:26 AM [facility] Eosinophils Absolute 0.17 0.00 - 0.50 K/mcL LAB HEMETOLOGY METHOD 01/03/2025 5:26 AM [facility] Basophils Absolute 0.05 0.00 - 0.20 K/mcL LAB HEMETOLOGY METHOD 01/03/2025 5:26 AM EDT [facility] Immature Granulocytes Absolute 0.03 0.00 - 0.03 K/mcL LAB HEMETOLOGY METHOD 01/03/2025 5:26 AM EDT [facility] Blood Venous blood specimen / Unknown Venipuncture / Unknown 01/03/2025 3:39 AM EDT 01/03/2025 5:21 AM EDT Julius Miller MD LAB BLOOD ORDERABLES Solange l Result [facility] [address] [place] [address], [place] [phone] * Sedimentation rate (01/03/2025 3:39 AM EDT) Sed Rate 12 0 - 15 mm/hr LAB HEMETOLOGY METHOD 01/03/2025 5:34 AM EDT [facility] Blood Venous blood specimen / Unknown Venipuncture / Unknown 01/03/2025 3:39 AM EDT 01/03/2025 5:21 AM EDT Julius Miller MD LAB BLOOD ORDERABLES Solange l Result [facility] [address] [place] [address], [place] [phone] * (ABNORMAL) Comprehensive Metabolic Panel (CMP) (01/03/2025 3:39 AM EDT) Sodium 137 133 - 145 mmol/L LAB CHEMISTRY METHOD 01/03/2025 5:47 AM EDT [facility] Potassium 3.9 3.5 - 5.5 mmol/L LAB CHEMISTRY METHOD 01/03/2025 5:47 AM EDT [facility] Chloride 102 96 - 110 mmol/L LAB CHEMISTRY METHOD 01/03/2025 5:47 AM [facility] CO2 27 21 - 32 mmol/L LAB CHEMISTRY METHOD 01/03/2025 5:47 AM [facility] Anion Gap 8 3 - 11 LAB CHEMISTRY METHOD 01/03/2025 5:47 AM [facility] Glucose 137(H) 70 - 100 mg/dL LAB CHEMISTRY METHOD 01/03/2025 5:47 AM [facility] BUN 15 5 - 25 mg/dL LAB CHEMISTRY METHOD 01/03/2025 5:47 AM [facility] Creatinine 0.89 0.70 - 1.30 mg/dL LAB CHEMISTRY METHOD 01/03/2025 5:47 AM [facility] eGFR 108 >=60 mL/min/1. 73m2 LAB CHEMISTRY METHOD 01/03/2025 5:47 AM [facility] Comment:Calculation based on the Chronic Kidney Disease Epidemiology Collaboration (CKD-EPI) equation refit without adjustment for race. BUN/Creatinine Ratio 16.9 LAB CHEMISTRY METHOD 01/03/2025 5:47 AM [facility] Calcium 9.3 8.5 - 10.5 mg/dL LAB CHEMISTRY METHOD 01/03/2025 5:47 AM [facility] AST (SGOT) 27 10 - 42 unit/L LAB CHEMISTRY METHOD 01/03/2025 5:47 AM [facility] ALT (SGPT) 46 10 - 60 unit/L LAB CHEMISTRY METHOD 01/03/2025 5:47 AM [facility] Alkaline Phosphatase 111 42 - 121 unit/L LAB CHEMISTRY METHOD 01/03/2025 5:47 AM [facility] Total Protein 7.4 6.0 - 8.0 g/dL LAB CHEMISTRY METHOD 01/03/2025 5:47 AM [facility] Albumin 4.2 3.2 - 5.0 g/dL LAB CHEMISTRY METHOD 01/03/2025 5:47 AM EDT [facility] Total Bilirubin 0.3 0.0 - 1.4 mg/dL LAB CHEMISTRY METHOD 01/03/2025 5:47 AM EDT [facility] Blood Venous blood specimen / Unknown Venipuncture / Unknown 01/03/2025 3:39 AM EDT 01/03/2025 5:21 AM EDT Julius Miller MD LAB BLOOD ORDERABLES Solange l Result [facility] [address] [place] [address], [place] [phone] * CT Head wo Contrast (01/03/2025 3:29 [...] by: Devonte Peralta MD on 01/03/2025 03:53:32 Julius Miller MD IMG CT PROCEDURES Final R esult from Last 3 Months Insurance [facility] Care Teams Sliver Handler Relationship Specialty Start Date End Date El Booker NP [address], [place] PCP - General Family Medicine 01/03/25
[2025-03-27 18:00] VITALS: BP 126/74; PULSE 96; RESP 18; TEMP 36.6; O2SAT 98
== END 2025-03-27 18:02 | disposition home or self-care (01) ==
PROVIDERS: Emergency Provider Emergency Medicine; PCP Nurse Practitioner Family
DX: L02.214 Cutaneous abscess of groin (principal); E11.9 Type 2 diabetes mellitus without complications; I10 Essential (primary) hypertension; E78.5 Hyperlipidemia, unspecified; Z87.891 Personal history of nicotine dependence; Z79.84 Long term (current) use of oral hypoglycemic drugs; Z79.899 Other long term (current) drug therapy
CPT/HCPCS: 99282